=== PATIENT | male | born 1955 | race Caucasian/White ===

== ENCOUNTER 2019-12-27 19:47 | Inpatient (IN) | payer MEDICARE, OTHER ==
[~2019-12-27 19:47] MED LIST: Iopamidol-370 76% 500 ML 1 ML ONE
[2019-12-27] MEDS ORDERED: Adacel (T-DAP) 0.5 ML SYRINGE ONE ×2 (20:00→20:05)
[2019-12-27 20:14] LABS: #Basophils 0.1 thou/uL (0.0-0.2); #Eosinphils 0.1 thou/uL (0.0-0.7); #Lymphocytes 1.7 thou/uL (1.20-3.40); #Monocytes 0.8 thou/uL (0.11-0.59); #Neutrophils 11.9 thou/uL (1.40-6.50); %Basophils 0.5 % (0.0-1.0); %Eosinophils 0.4 % (0.0-10.0); %Lymphocytes 11.9 % (21.0-51.0); %Monocytes 5.5 % (0.0-10.0); %Neutrophils 81.6 % (42.0-75.0); Hemoglobin 16.5 g/dL (14.0-18.0); Mean Corpuscular HGB CONC 34.5 g/dL (32.0-36.0); Mean Corpuscular Hemoglobin 31.4 pg (27.0-31.0); Mean Platelet Volume 8.6 fL (7.4-10.4); Platelet Count 270 thou/uL (130-400); RBC Distribution Width 11.7 % (11.5-14.5); Red Blood Cell (RBC) Count 5.24 mill/uL (4.70-6.10); White Blood Cell (WBC) Count 14.6 thou/uL (4.8-10.8)
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
[2019-12-27 20:20] LABS: Prothrombin Time 13.5 sec (12.0-14.7)
[2019-12-27 20:21] LABS: PTT 21.3 sec (22.9-36.1)
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
[2019-12-27] MEDS ORDERED: Ondansetron PF 4 MG/2 ML Vial IVP PRN (21:09)
[2019-12-27] MEDS ORDERED: Dextrose 50% Abboject 50 ML SYRINGE SLOW IVP PRN (21:09)
[2019-12-27] MEDS ORDERED: Morphine 2 MG/ML SYRINGE SLOW IVP PRN (21:09)
[2019-12-27] MEDS ORDERED: Dextrose 5% in Water 1,000 ML IV PRN (21:09)
[2019-12-27 21:11] LABS: ALT (SGPT) 19 U/L (8-55); AST (SGOT) 25 U/L (5-34); Albumin 4.2 g/dL (3.4-4.8); Alkaline Phosphatase 59 U/L (40-110); Anion Gap 9 mmol/L (10-20); BUN (Urea Nitrogen) 20 mg/dL (8.4-25.7); Bilirubin, Total 0.6 mg/dL (0.2-1.2); Calc. Creatinine Clearance 0 mL/min (70-130); Calcium 9.2 mg/dL (7.8-10.44); Carbon Dioxide 29 mmol/L (23-31); Chloride 107 mmol/L (98-107); Estimated GFR-MDRD 68; Globulin 2.6 g/dL (2.4-3.5); Glucose 139 mg/dL (80-115); Potassium 4.4 mmol/L (3.5-5.1); Protein, Total 6.8 g/dL (5.8-8.1); Sodium 141 mmol/L (136-145)
[2019-12-27] MEDS ORDERED: traMADol HCl 50 MG TAB PO PRN ×2 (21:13)
[2019-12-27] MEDS ORDERED: Cyclobenzaprine 10 MG TAB PO PRN (21:13)
[2019-12-27] MEDS ORDERED: Sodium Chloride 0.9% 1,000 ML IV SCH (21:15)
[2019-12-27] MEDS ORDERED: Sodium Chloride 0.9% 10 ML ONE (21:50)
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
[2019-12-27] MEDS ORDERED: Fentanyl 100 MCG/2 ML VIAL ONE (22:09)
[2019-12-27] MEDS ORDERED: Dexamethasone 20 MG/5 ML VIAL ONE (22:39)
[2019-12-27] MEDS ORDERED: Ondansetron PF 4 MG/2 ML Vial ONE (22:39)
[2019-12-27] MEDS ORDERED: PROPOFOL 200 MG/20 ML VIAL ONE (22:39)
[2019-12-27] MEDS ORDERED: Rocuronium Bromide 10 MG/ML (10ML VIAL) ONE (22:39)
[2019-12-27] MEDS ORDERED: Succinylcholine Chloride 20 MG/ML 10 ml SYRINGE FS ONE (22:39)
[2019-12-27] MEDS ORDERED: Lidocaine 1% PF 5 ML VIAL ONE (22:39)
[2019-12-27 22:47] LABS: Bilirubin Negative (Negative); Blood, Urine Negative (Negative); Clarity Clear (Clear); Glucose, Urine (Dipstick) Normal (Negative); Leukocyte Negative Leu/uL (Negative); Nitrite Negative (Negative); Protein, Urine (Dipstick) 10 mg/dL (Neg-Trace); Urobilinogen Normal mg/dL (Less than 2)
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
[2019-12-27] MEDS ORDERED: Ondansetron HCl/PF 4 MG/2 ML Vial IVP PRN ×2 (22:51→23:53)
[2019-12-27] MEDS ORDERED: Promethazine HCl 25 MG/ML VIAL SLOW IVP PRN ×2 (22:51→23:53)
[2019-12-27] MEDS ORDERED: Promethazine HCl 25 MG/ML VIAL IM PRN ×2 (22:51→23:53)
[2019-12-27] MEDS ORDERED: Meperidine HCl/PF 25 MG/ML VIAL ONE (23:52)
[2019-12-27] MEDS ORDERED: HYDROmorphone 2 MG/ML VIAL SLOW IVP PRN (23:53)
[2019-12-27] MEDS ORDERED: Morphine Sulfate 2 MG/ML SYRINGE SLOW IVP PRN (23:53)
[2019-12-27] MEDS ORDERED: Meperidine HCl/PF 25 MG/ML VIAL SLOW IVP PRN (23:53)
[2019-12-27] MEDS ORDERED: PACU-Morphine 4MG/ML VIAL SLOW IVP PRN (23:53)
[2019-12-28] MEDS ORDERED: Fentanyl 100 MCG/2 ML VIAL ONE ×2 (00:02→00:20)
[2019-12-28] MEDS: Ibuprofen 200 MG TAB PO SCH ×4 (01:20→22:58)
[2019-12-28] MEDS: Acetaminophen 500 MG TAB PO SCH ×5 (01:46→22:58)
[2019-12-28 01:52] VITALS: BMI 26.8
[2019-12-28 05:13] LABS: #Lymphocytes 0.7 thou/uL (1.20-3.40); #Monocytes 0.1 thou/uL (0.11-0.59); #Neutrophils 7.5 thou/uL (1.40-6.50); %Eosinophils 0.1 % (0.0-10.0); %Lymphocytes 8.2 % (21.0-51.0); %Monocytes 1.5 % (0.0-10.0); %Neutrophils 90.2 % (42.0-75.0); Hemoglobin 13.9 g/dL (14.0-18.0); Mean Corpuscular HGB CONC 33.4 g/dL (32.0-36.0); Mean Corpuscular Hemoglobin 30.6 pg (27.0-31.0); Mean Corpuscular Volume 91.4 fL (78.0-98.0); Mean Platelet Volume 8.4 fL (7.4-10.4); Platelet Count 224 thou/uL (130-400); RBC Distribution Width 11.8 % (11.5-14.5); Red Blood Cell (RBC) Count 4.55 mill/uL (4.70-6.10); White Blood Cell (WBC) Count 8.4 thou/uL (4.8-10.8)
[2019-12-28 05:32] LABS: Anion Gap 12 mmol/L (10-20); BUN (Urea Nitrogen) 17 mg/dL (8.4-25.7); Calc. Creatinine Clearance 90 mL/min (70-130); Calcium 8.4 mg/dL (7.8-10.44); Carbon Dioxide 23 mmol/L (23-31); Chloride 108 mmol/L (98-107); Estimated GFR-MDRD 77; Glucose 180 mg/dL (80-115); Magnesium 2.2 mg/dL (1.6-2.6); Phosphorus 2.7 mg/dL (2.3-4.7); Potassium 4.3 mmol/L (3.5-5.1); Sodium 139 mmol/L (136-145)
[2019-12-28] MEDS: CEFAZOLIN 2 GM in Premix Bag 1 BAG IVPB SCH ×3 (05:35→22:58)
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
[2019-12-28] MEDS: Gabapentin 100 MG CAP PO SCH ×3 (10:03→20:00)
[2019-12-28] MEDS: Famotidine/PF 20 mg/2ml Vial SLOW IVP SCH ×2 (10:03→20:01)
[2019-12-28] MEDS: Senokot S 8.6-50 MG TAB PO SCH ×2 (10:04→20:01)
[2019-12-28] MEDS: Polyethylene Glycol 3350 17 GM Packet PO SCH (10:04)
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
[2019-12-28] MEDS: Enoxaparin Sodium 40 MG/0.4 ML SYRINGE SC SCH (20:01)
[2019-12-28] MEDS ORDERED: Prevnar 13-Val Conj/PF 0.5 ML SYRINGE IM ONE (21:00)
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
[2019-12-29 04:55] LABS: Band 2 % (5-11); Hemoglobin 12.2 g/dL (14.0-18.0); Lymphocytes 21 % (21-51); MDiff Complete? YES; Mean Corpuscular HGB CONC 34.4 g/dL (32.0-36.0); Mean Corpuscular Hemoglobin 31.5 pg (27.0-31.0); Mean Corpuscular Volume 91.6 fL (78.0-98.0); Mean Platelet Volume 8.6 fL (7.4-10.4); Monocytes 7 % (0-10); Neutrophil 70 % (42-75); Platelet Count 188 thou/uL (130-400); Platelet Morphology Comment Appears Adequate; RBC Distribution Width 11.6 % (11.5-14.5); Red Blood Cell (RBC) Count 3.89 mill/uL (4.70-6.10); White Blood Cell (WBC) Count 9.6 thou/uL (4.8-10.8)
[2019-12-29 05:06] LABS: Anion Gap 9 mmol/L (10-20); BUN (Urea Nitrogen) 20 mg/dL (8.4-25.7); Calc. Creatinine Clearance 99 mL/min (70-130); Calcium 7.8 mg/dL (7.8-10.44); Carbon Dioxide 25 mmol/L (23-31); Chloride 105 mmol/L (98-107); Estimated GFR-MDRD 86; Glucose 109 mg/dL (80-115); Magnesium 2.2 mg/dL (1.6-2.6); Phosphorus 3.2 mg/dL (2.3-4.7); Sodium 135 mmol/L (136-145)
[2019-12-29] MEDS: Ibuprofen 200 MG TAB PO SCH ×3 (05:22→21:04)
[2019-12-29] MEDS: Acetaminophen 500 MG TAB PO SCH ×3 (05:22→18:46)
[2019-12-29] MEDS: CEFAZOLIN 2 GM in Premix Bag 1 BAG IVPB SCH ×3 (05:22→21:04)
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
[2019-12-29] MEDS: Senokot S 8.6-50 MG TAB PO SCH ×2 (09:35→21:05)
[2019-12-29] MEDS: Polyethylene Glycol 3350 17 GM Packet PO SCH (09:35)
[2019-12-29] MEDS: Gabapentin 100 MG CAP PO SCH ×3 (09:35→21:05)
[2019-12-29] MEDS: Enoxaparin Sodium 40 MG/0.4 ML SYRINGE SC SCH (21:04)
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
[2019-12-30] MEDS: Acetaminophen 500 MG TAB PO SCH ×3 (02:01→11:31)
[2019-12-30] MEDS: Ibuprofen 200 MG TAB PO SCH ×2 (07:07→14:25)
[2019-12-30] MEDS: Polyethylene Glycol 3350 17 GM Packet PO SCH (08:42)
[2019-12-30] MEDS: Gabapentin 100 MG CAP PO SCH ×2 (08:43→14:25)
[2019-12-30] MEDS: Senokot S 8.6-50 MG TAB PO SCH (08:43)
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
[2019-12-30 15:47] VITALS: BP 154/90; TEMP 98.1
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
[2019-12-31 16:50] LABS: SARS-CoV-2 MS2 Positive; SARS-CoV-2 N Gene Negative; SARS-CoV-2 S Gene Negative; SARS-CoV-2 orf1ab Negative
== END 2019-12-30 16:50 | disposition home or self-care (01) | DRG 492 ==
LOC: ERS 19:47 → SDC/OP 23:40 → SURG B 12-28 01:05
PROVIDERS: ADMIT Surgery; ATTEND Surgery
PROC: 0QHH35Z Insertion of External Fixation Device into Left Tibia, Percutaneous Approach (ICD-10-PCS; principal; 2019-12-27)
PROC: 0QHK35Z Insertion of External Fixation Device into Left Fibula, Percutaneous Approach (ICD-10-PCS; 2019-12-27)
PROC: 8E0YXBZ Computer Assisted Procedure of Lower Extremity (ICD-10-PCS; 2019-12-27)
PROC: 3E0234Z Introduction of Serum, Toxoid and Vaccine into Muscle, Percutaneous Approach (ICD-10-PCS; 2019-12-27)
PROC: 3E02340 Introduction of Influenza Vaccine into Muscle, Percutaneous Approach (ICD-10-PCS; 2019-12-28)
DX: S82.302B Unspecified fracture of lower end of left tibia, initial encounter for open fracture type I or II (principal); Z11.59 Encounter for screening for other viral diseases; Z23 Encounter for immunization; S82.832B Other fracture of upper and lower end of left fibula, initial encounter for open fracture type I or II; S22.42XA Multiple fractures of ribs, left side, initial encounter for closed fracture; S06.0X0A Concussion without loss of consciousness, initial encounter; V89.2XXA Person injured in unspecified motor-vehicle accident, traffic, initial encounter; Z87.891 Personal history of nicotine dependence
CPT/HCPCS: 27840; 36415; 36416; 70450; 71045; 71260; 72125; 72170; 74177; 76000; 80048; 80053; 81003; 83735; 84100; 85007; 85025; 85027; 85610; 85730; 86850; 86900; 86901; 87635; 90471; 90715; 94760; 96365; C1713; G0390; J0690; J1100; J1650; J2001; J2175; J2270; J2405; J2704; J3010; J3370; Q9967; S0028; U0003

== ENCOUNTER 2020-01-04 11:21 | Day surgery (SDC) | payer SELFPAY ==
[2020-01-03 11:49] VITALS: BMI 26.4
[~2020-01-04 11:21] MED LIST changes: +Bupivacaine HCl 0.5%/Epinephrine 1:200,000/PF 30 ml Vial ONE; +Dexamethasone 20 MG/5 ML VIAL ONE; -Iopamidol-370 76% 500 ML 1 ML ONE; +Ketorolac Tromethamine 30 MG/ML VIAL ONE; +Lidocaine 1% PF 5 ML VIAL ONE; +Ondansetron PF 4 MG/2 ML Vial ONE; +PROPOFOL 200 MG/20 ML VIAL ONE
[2020-01-04] MEDS ORDERED: Fentanyl 100 MCG/2 ML VIAL ONE ×2 (12:36→13:13)
[2020-01-04] MEDS ORDERED: Midazolam HCl 2 mg/2 ml Vial ONE (12:36)
[2020-01-04] MEDS ORDERED: Promethazine HCl 25 MG/ML VIAL IM PRN ×2 (16:10→16:40)
[2020-01-04] MEDS ORDERED: Ondansetron HCl/PF 4 MG/2 ML Vial IVP PRN (16:10)
[2020-01-04] MEDS ORDERED: HYDROmorphone 2 MG/ML VIAL SLOW IVP PRN (16:10)
[2020-01-04] MEDS ORDERED: Promethazine HCl 25 MG/ML VIAL SLOW IVP PRN (16:10)
[2020-01-04] MEDS ORDERED: Ondansetron PF 4 MG/2 ML Vial IVP PRN (16:40)
[2020-01-04] MEDS ORDERED: Ropivacaine 0.2% 550 ML 550 ML NERVE BLCK SCH (16:40)
[2020-01-04] MEDS ORDERED: HYDROcodone/Acetaminophen 5/325 mg Tablet PO PRN ×2 (16:40)
[2020-01-04] MEDS ORDERED: Zolpidem Tartrate 5 MG TAB PO PRN (16:40)
[2020-01-04] MEDS ORDERED: traMADol HCl 50 MG TAB PO PRN ×2 (16:40)
--- NOTE | 2020-01-04 17:17 | RAD ---
LEFT ANKLE: 01/04/20 Two fluoroscopic views from OR presented. INDICATIONS: Open reduction internal fixation. Hardware removal. IMPRESSION: These films demonstrate plate and screws transfixing the distal tibia and fibula. POS: AH
--- NOTE | 2020-01-05 09:01 | OP ---
DATE OF PROCEDURE: 01/04/2020 OPERATIONS PERFORMED: 1. Open reduction and internal fixation of left distal tibial plafond fracture and distal fibular fracture. 2. External fixation removal. PREOPERATIVE DIAGNOSIS: Intra-articular displaced left distal tibia and fibular fracture. POSTOPERATIVE DIAGNOSIS: Intra-articular displaced left distal tibia and fibular fracture. COMPLICATIONS: None. ESTIMATED BLOOD LOSS: 100 mL. ANESTHESIA: General plus regional. IMPLANTS: Synthes 10-hole anterior lateral tibial plate with a 6-hole 1/3 tubular fibular plate with multiple locking and nonlocking screws. INDICATIONS: Mr. Heath is a 65-year-old male who has a fracture of the left distal tibia and fibula. He had a highly comminuted and displaced fracture, which was open. He was placed in an external fixator last week. He has been indicated now for ORIF to restore anatomic alignment and promote healing and allow removal of external fixator. He is at risk for posttraumatic arthritis, nonunion, malunion, infection, hardware failure, and other complications. DESCRIPTION OF PROCEDURE: Mr. Heath was identified in the preoperative holding area. His correct extremity was marked. He was carried to the operating room. He was positioned supine. General anesthesia was induced. A multidisciplinary time-out was performed. The left lower extremity was prepped and draped in sterile fashion. We began the procedure with external fixator removal. The pins were removed with appropriate T-handle. We cleaned the pin sites and irrigated these. Next, again we prepped the leg. We then proceeded with an anterior lateral approach to the distal tibia and fibula. We dissected down through the subcutaneous tissues to the fibula. We exposed the underlying fibular fracture, which was transverse. We reduced this fracture. We then applied a 6-hole 1/3 tubular plate. Multiple screws were placed proximally and distal to the fibular fracture. We took x-ray images, confirming the alignment was appropriate and all hardware was appropriate. We then moved more medially across the interosseous membrane to the tibia. We exposed the highly comminuted and displaced distal tibial fracture. We pulled length on the ankle and restored the appropriate length. We then were able to reduce the articular fragments back to their anatomic position. There was a large anterior fragment, which we used K-wires to hold to the posterior fragments. We then reduced the shaft fragments as well, holding the reduction with clamps and K-wires. Next, we placed a 10-hole anterior lateral plate. Multiple locking screws were placed distally. We then placed multiple nonlocking screws proximally. This held our reduction well. We took x-ray images in orthogonal planes. There were no complications. We thoroughly irrigated with copious lavage after all screws were placed. At this point, we packed some cancellous bone chips in the metaphysis of the bone as we did have a large defect. Finally, we closed appropriately in layers. We placed a well-padded splint. The patient was taken to the recovery room in good condition. Job ID: [id number]
== END 2020-01-04 18:28 | disposition home or self-care (01) ==
LOC: SDC 11:21
PROVIDERS: ATTEND Orthopaedic Surgery
PROC: 0QSK04Z Reposition Left Fibula with Internal Fixation Device, Open Approach (ICD-10-PCS; principal; 2020-01-04)
DX: S82.302A Unspecified fracture of lower end of left tibia, initial encounter for closed fracture (principal); S82.492A Other fracture of shaft of left fibula, initial encounter for closed fracture
CPT/HCPCS: 76000; C1713; J0670; J0690; J1100; J1885; J2001; J2250; J2405; J2704; J3010

== ENCOUNTER 2020-01-18 12:27 | Observation (INO) | payer MEDICARE ==
[2020-01-18] MEDS ORDERED: Cyclobenzaprine 10 MG TAB PO PRN (14:08)
[2020-01-18] MEDS ORDERED: Acetaminophen 500 MG TAB PO PRN (14:08)
[2020-01-18] MEDS ORDERED: Gabapentin 100 MG CAP PO PRN (14:08)
[2020-01-18] MEDS ORDERED: Polyethylene Glycol 3350 17 GM Packet PO PRN (14:08)
[2020-01-18] MEDS ORDERED: Senokot S 8.6-50 MG TAB PO PRN (14:08)
[2020-01-18 14:27] VITALS: BMI 24.7
[2020-01-18 15:08] LABS: #Basophils 0.1 thou/uL (0.0-0.2); #Eosinphils 0.1 thou/uL (0.0-0.7); #Lymphocytes 2.1 thou/uL (1.20-3.40); #Monocytes 0.7 thou/uL (0.11-0.59); #Neutrophils 6.1 thou/uL (1.40-6.50); %Eosinophils 1.6 % (0.0-10.0); %Lymphocytes 23.2 % (21.0-51.0); %Monocytes 7.2 % (0.0-10.0); %Neutrophils 67.1 % (42.0-75.0); Hemoglobin 12.9 g/dL (14.0-18.0); Mean Corpuscular HGB CONC 34.1 g/dL (32.0-36.0); Mean Corpuscular Hemoglobin 30.7 pg (27.0-31.0); Platelet Count 529 thou/uL (130-400); RBC Distribution Width 11.2 % (11.5-14.5); Red Blood Cell (RBC) Count 4.22 mill/uL (4.70-6.10); White Blood Cell (WBC) Count 9.1 thou/uL (4.8-10.8)
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
[2020-01-18 15:30] LABS: Anion Gap 14 mmol/L (10-20); BUN (Urea Nitrogen) 22 mg/dL (8.4-25.7); Calc. Creatinine Clearance 91 mL/min (70-130); Calcium 9.1 mg/dL (7.8-10.44); Carbon Dioxide 28 mmol/L (23-31); Chloride 101 mmol/L (98-107); Estimated GFR-MDRD 83; Glucose 130 mg/dL (80-115); Magnesium 2.2 mg/dL (1.6-2.6); Phosphorus 4.6 mg/dL (2.3-4.7); Potassium 4.1 mmol/L (3.5-5.1); Sodium 139 mmol/L (136-145)
[2020-01-18] MEDS: Vancomycin 1 GM in Premix Bag 1 BAG IVPB SCH (15:45)
[2020-01-18] MEDS: Sodium Chloride 0.9% 1,000 ML IV SCH (15:46)
[2020-01-18] MEDS ORDERED: Ibuprofen 200 MG TAB PO PRN (16:03)
[2020-01-18] MEDS: Piperacillin/Tazobactam 3.375 GM in Sodium Chloride 0.9% 100 ML IVPB SCH (18:09)
[2020-01-18] MEDS: Acetaminophen 500 MG TAB PO SCH (18:09)
[2020-01-18 19:20] LABS: Bilirubin Negative (Negative); Blood, Urine Negative (Negative); Clarity Clear (Clear); Glucose, Urine (Dipstick) Normal (Negative); Leukocyte Negative Leu/uL (Negative); Nitrite Negative (Negative); Protein, Urine (Dipstick) Negative (Neg-Trace); Urobilinogen Normal mg/dL (Less than 2)
[2020-01-18] MEDS ORDERED: Enoxaparin Sodium 40 MG/0.4 ML SYRINGE SC SCH (21:00)
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
[2020-01-18] MEDS: HYDROcodone/Acetaminophen 10/325 mg Tablet PO PRN (21:16)
[2020-01-18] MEDS: Senokot S 8.6-50 MG TAB PO SCH (21:19)
[2020-01-19] MEDS: Sodium Chloride 0.9% 1,000 ML IV SCH (00:25)
[2020-01-19] MEDS: Acetaminophen 500 MG TAB PO SCH ×3 (00:25→11:41)
[2020-01-19] MEDS: Piperacillin/Tazobactam 3.375 GM in Sodium Chloride 0.9% 100 ML IVPB SCH ×3 (00:25→11:43)
--- NOTE | 2020-01-19 02:13 | PRG ---
DATE OF SERVICE: 01/19/2020 SUBJECTIVE: The patient is currently on the surgical floor. He has been admitted today, status post open reduction and internal fixation on January 03, for an ankle fracture that was seen in clinic today and felt that he had a surgical site infection. At which time, we have admitted in the hospital and began IV antibiotics. The patient was evaluated early this evening by Dr. Broderick, who felt that the patient would not require irrigation and debridement in the operating room, but we would do IV antibiotics for at least 24 hours. At the time of my visit, the patient reports pain control. He was tolerating his diet. OBJECTIVE: VITAL SIGNS: Stable. The patient is afebrile. GENERAL: The patient is resting comfortably in bed. He is awake, alert, conversant, appropriate. His respirations are nonlabored. ABDOMEN: Nondistended. EXTREMITIES: Neurovascularly intact x4. His left lower extremity has a clean, dry, intact dressing on it. ASSESSMENT: Status post open reduction and internal fixation of left ankle fracture with suspected postop wound infection. PLAN: To continue IV antibiotics. Begin physical and occupational therapy and discuss placement. Job ID: [id number]
[2020-01-19] MEDS: Vancomycin 1 GM in Premix Bag 1 BAG IVPB SCH ×2 (02:51→13:58)
[2020-01-19] MEDS: Senokot S 8.6-50 MG TAB PO SCH ×2 (02:55→09:07)
[2020-01-19] MEDS: HYDROcodone/Acetaminophen 10/325 mg Tablet PO PRN ×2 (05:52→11:42)
[2020-01-19] MEDS ORDERED: Polyethylene Glycol 3350 17 GM Packet PO SCH (09:00)
[2020-01-19 15:21] VITALS: BP 122/79; TEMP 98.2
--- NOTE | 2020-01-20 11:28 | DIS ---
DATE OF ADMISSION: 01/18/2020 DATE OF DISCHARGE: 01/19/2020 PREOPERATIVE DIAGNOSIS: Postoperative wound infection, left ankle. POSTOPERATIVE DIAGNOSIS: Postoperative wound infection, left ankle. PROCEDURES: None. HOSPITAL COURSE: The patient was in the clinic on the . He was seen by Beth Saeed. His wounds looked fairly awful, but he had been in a splint for a while. He was brought over to the hospital. We evaluated the wounds, kind of cleaned up and actually looked quite well. New dressing was placed. The patient was discharged the next day. The patient had no hospital complications for the one day. He would follow up in the clinic in 7 to 10 days for followup. If there was any dressing saturation, he would follow up sooner. The patient understands the plan. He was initially admitted for this discharge from the Trauma Service, discharged by myself. DISCHARGE CONDITION: Good/stable. DISPOSITION: Home. FOLLOWUP: Followup would be in 7 to 10 days. DISCHARGE MEDICATIONS: Given with usage instructions. Job ID: [id number]
== END 2020-01-19 17:20 | disposition home or self-care (01) ==
LOC: SURG A 12:27 → INTOOBSV 12:27
PROVIDERS: ADMIT Surgery; ATTEND Surgery
DX: T81.49XA Infection following a procedure, other surgical site, initial encounter (principal); Z87.891 Personal history of nicotine dependence; Z98.890 Other specified postprocedural states
CPT/HCPCS: 71045; 80048; 81003; 83735; 84100; 85025; 87040; 96361; 96365; 96366; 96372; 96376; 97116; 97139 ×3; 97535; 97760; G0378; 36415; J1650; J2543; J3370; J3490

== ENCOUNTER 2020-04-05 07:17 | Outpatient (CLI) | payer MEDICARE, OTHER ==
[2020-04-06 12:34] LABS: SARS-CoV-2 MS2 Positive; SARS-CoV-2 N Gene Negative; SARS-CoV-2 S Gene Negative; SARS-CoV-2 by NAA Not Detected (NotDetected); SARS-CoV-2 orf1ab Negative
== END 2020-04-05 07:18 | disposition home or self-care (01) ==
LOC: LABBT 07:17
PROVIDERS: ATTEND Orthopaedic Surgery
DX: S82.872A Displaced pilon fracture of left tibia, initial encounter for closed fracture (principal); Z20.828 Contact with and (suspected) exposure to other viral communicable diseases
CPT/HCPCS: 87635; U0003

== ENCOUNTER 2020-04-09 10:38 | Day surgery (SDC) | payer MEDICARE ==
[2020-04-05 10:46] VITALS: BMI 25.8
[~2020-04-09 10:38] MED LIST changes: -Bupivacaine HCl 0.5%/Epinephrine 1:200,000/PF 30 ml Vial ONE; -Dexamethasone 20 MG/5 ML VIAL ONE; -Ketorolac Tromethamine 30 MG/ML VIAL ONE; -Ondansetron PF 4 MG/2 ML Vial ONE
[2020-04-09] MEDS ORDERED: Fentanyl 100 MCG/2 ML VIAL ONE (12:48)
[2020-04-09] MEDS ORDERED: Bupivacaine HCl 0.5%/Epinephrine 1:200,000/PF 30 ml Vial ONE (12:49)
--- NOTE | 2020-04-09 13:26 | RAD ---
Exam:Exam: Intraoperative fluoroscopy HISTORY: Left ankle fracture with internal fixation COMPARISON: 04/04/2020 FINDINGS: 1 intraprocedural fluoroscopic view demonstrate nonunion of a distal fibula and tibia fract ure. Exposure 4.6 seconds. 0.09 emma rowland IMPRESSION: Fluoroscopy as above
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
== END 2020-04-09 15:26 | disposition home or self-care (01) ==
LOC: SDC 10:38
PROVIDERS: ATTEND Orthopaedic Surgery
PROC: 0JQR0ZZ Repair Left Foot Subcutaneous Tissue and Fascia, Open Approach (ICD-10-PCS; principal; 2020-04-09)
PROC: 0QPK04Z Removal of Internal Fixation Device from Left Fibula, Open Approach (ICD-10-PCS; 2020-04-09)
DX: T81.30XA Disruption of wound, unspecified, initial encounter (principal); T84.89XA Other specified complication of internal orthopedic prosthetic devices, implants and grafts, initial encounter; S82.872E Displaced pilon fracture of left tibia, subsequent encounter for open fracture type I or II with routine healing; V89.2XXD Person injured in unspecified motor-vehicle accident, traffic, subsequent encounter
CPT/HCPCS: 76000; J0670; J0690; J2704; J3010

== ENCOUNTER 2020-06-20 06:40 | Outpatient (CLI) | payer MEDICARE ==
[2020-06-21 03:41] LABS: SARS-CoV-2 MS2 Positive; SARS-CoV-2 N Gene Negative; SARS-CoV-2 S Gene Negative; SARS-CoV-2 by NAA Not Detected (NotDetected); SARS-CoV-2 orf1ab Negative
== END 2020-06-20 06:41 | disposition home or self-care (01) ==
LOC: LABBT 06:40
PROVIDERS: ATTEND Orthopaedic Surgery
DX: Z01.812 Encounter for preprocedural laboratory examination (principal); Z20.828 Contact with and (suspected) exposure to other viral communicable diseases; T85.848D Pain due to other internal prosthetic devices, implants and grafts, subsequent encounter
CPT/HCPCS: 87635; U0003

== ENCOUNTER 2020-06-25 10:19 | Inpatient (IN) | payer MEDICARE ==
[2020-06-25] MEDS ORDERED: Fentanyl 100 MCG/2 ML VIAL ONE ×4 (11:20→16:27)
[2020-06-25] MEDS ORDERED: Neomycin-Polymyxin 1 ML AMP ONE (13:31)
[2020-06-25] MEDS ORDERED: Ondansetron PF 4 MG/2 ML Vial ONE (13:36)
[2020-06-25] MEDS ORDERED: Lidocaine 1% PF 5 ML VIAL ONE (13:36)
[2020-06-25] MEDS ORDERED: Dexamethasone 20 MG/5 ML VIAL ONE (13:36)
[2020-06-25] MEDS ORDERED: PROPOFOL 200 MG/20 ML VIAL ONE (13:36)
[2020-06-25] MEDS ORDERED: Milk Of Magnesia 30 ML UDCUP PO PRN (14:41)
[2020-06-25] MEDS ORDERED: Morphine 2 MG/ML VIAL SLOW IVP PRN (14:41)
[2020-06-25] MEDS ORDERED: Bisacodyl 10 MG SUPP PR PRN (14:41)
[2020-06-25] MEDS ORDERED: Acetaminophen/Codeine 30-300mg Tablet PO PRN ×2 (14:41)
[2020-06-25] MEDS ORDERED: Fentanyl 100 MCG/2 ML VIAL SLOW IVP PRN (14:41)
[2020-06-25] MEDS ORDERED: Ondansetron PF 4 MG/2 ML Vial SLOW IVP PRN (14:41)
[2020-06-25] MEDS ORDERED: Morphine 4 MG/ML VIAL SLOW IVP PRN (14:41)
[2020-06-25] MEDS ORDERED: Acetaminophen 325 MG TAB PO PRN (14:41)
[2020-06-25] MEDS ORDERED: Promethazine HCl 25 MG/ML VIAL IM PRN (14:41)
[2020-06-25] MEDS ORDERED: Communication Order-Pharmacy FS SCH (14:45)
[2020-06-25] MEDS ORDERED: Heparin 1,000 UNITS/ML VIAL ONE (16:05)
[2020-06-25] MEDS ORDERED: HYDROcodone/Acetaminophen 10/325 mg Tablet ONE (16:38)
[2020-06-25] MEDS: HYDROcodone/Acetaminophen 10/325 mg Tablet PO PRN (16:50)
--- NOTE | 2020-06-25 19:03 | RAD ---
EXAM: 1 single submitted intraoperative fluoroscopic image of the left ankle. DATE: 06/25/2020 12:20 PM INDICATION: Removal of hardware COMPARISON: Prior left ankle radiograph dated May 21, 2020 FINDING: There is been interval removal of the hardware involving the distal tibia and fibula. The i ncompletely healed distal tibia and fibula fracture appears similar. Chronic periostitis involving the distal tibia is similar. Total fluoroscopic time was 7.8 seconds. IMPRESSION:Interval removal of hardware from the distal left tibia and fibula.
[2020-06-25] MEDS ORDERED: Bromfenac Sodium [Prolensa] 3 ML Drops R EYE SCH (21:00)
[2020-06-25] MEDS: Ketorolac Tromethamine 30 MG/ML VIAL IVP SCH ×2 (21:32→22:58)
[2020-06-25] MEDS: Aspirin 81 mg Enteric Coated Tablet PO SCH (21:39)
[2020-06-25] MEDS: Piperacillin/Tazobactam 3.375 GM in Sodium Chloride 0.9% 100 ML IVPB SCH (21:40)
[2020-06-25] MEDS: Moxifloxacin 0.5% Opth Drop 3 ML BOT R EYE SCH (21:41)
[2020-06-25] MEDS ORDERED: Vancomycin HCl 1.25 GM in Sodium Chloride 0.9% 250 ML 300 ML IVPB SCH (22:00)
[2020-06-25] MEDS: Vancomycin HCl 1.25 GM in Sodium Chloride 0.9% 250 ML 250 ML IVPB SCH (22:56)
[2020-06-26 01:01] VITALS: BMI 26.5
[2020-06-26] MEDS: Piperacillin/Tazobactam 3.375 GM in Sodium Chloride 0.9% 100 ML IVPB SCH ×4 (02:16→21:04)
[2020-06-26] MEDS: HYDROcodone/Acetaminophen 10/325 mg Tablet PO PRN (02:16)
[2020-06-26] MEDS: Ketorolac Tromethamine 30 MG/ML VIAL IVP SCH ×3 (05:20→17:42)
[2020-06-26 05:57] LABS: #Lymphocytes 1.3 thou/uL (1.20-3.40); #Monocytes 0.7 thou/uL (0.11-0.59); #Neutrophils 8.6 thou/uL (1.40-6.50); %Basophils 0.1 % (0.0-1.0); %Eosinophils 0.1 % (0.0-10.0); %Lymphocytes 12.1 % (21.0-51.0); %Monocytes 6.8 % (0.0-10.0); %Neutrophils 80.9 % (42.0-75.0); Hemoglobin 12.7 g/dL (14.0-18.0); Mean Corpuscular HGB CONC 33.3 g/dL (32.0-36.0); Mean Corpuscular Hemoglobin 28.8 pg (27.0-31.0); Mean Corpuscular Volume 86.6 fL (78.0-98.0); Mean Platelet Volume 8.3 fL (7.4-10.4); Platelet Count 256 thou/uL (130-400); RBC Distribution Width 12.2 % (11.5-14.5); White Blood Cell (WBC) Count 10.6 thou/uL (4.8-10.8)
[2020-06-26 06:18] LABS: ALT (SGPT) 11 U/L (8-55); AST (SGOT) 14 U/L (5-34); Albumin 3.4 g/dL (3.4-4.8); Alkaline Phosphatase 95 U/L (40-110); Anion Gap 13 mmol/L (10-20); BUN (Urea Nitrogen) 17 mg/dL (8.4-25.7); Bilirubin, Total 0.5 mg/dL (0.2-1.2); Calc. Creatinine Clearance 91 mL/min (70-130); Calcium 8.2 mg/dL (7.8-10.44); Carbon Dioxide 24 mmol/L (23-31); Chloride 101 mmol/L (98-107); Globulin 3.1 g/dL (2.4-3.5); Glucose 150 mg/dL (80-115); Potassium 4.5 mmol/L (3.5-5.1); Protein, Total 6.5 g/dL (5.8-8.1); Sodium 133 mmol/L (136-145)
[2020-06-26] MEDS ORDERED: FLU VACC QS2020-21(65YR UP)/PF 240 MCG/0.7 ML SYRINGE IM ONE (09:00)
[2020-06-26] MEDS ORDERED: Difluprednate [Durezol] 5 ML Drops R EYE SCH (09:00)
[2020-06-26] MEDS: Aspirin 81 mg Enteric Coated Tablet PO SCH ×2 (09:49→21:04)
[2020-06-26] MEDS: Moxifloxacin 0.5% Opth Drop 3 ML BOT R EYE SCH ×2 (09:50→21:04)
[2020-06-26] MEDS: Vancomycin HCl 1.25 GM in Sodium Chloride 0.9% 250 ML 250 ML IVPB SCH ×2 (11:08→22:09)
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
--- NOTE | 2020-06-26 22:30 | OP ---
DATE OF PROCEDURE: 06/25/2020 PREOPERATIVE DIAGNOSIS: Status post left pilon fracture, now with probable infected hardware. POSTOPERATIVE DIAGNOSES: 1. Nonunion, left distal tibia. 2. 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 PROCEDURES: 1. Removal of hardware, left distal tibia and fibula. 2. Irrigation and debridement of left distal tibia and fibula. ANESTHESIA: General. ENVIRONMENT COORDINATOR: Ismael. TOURNIQUET TIME: 96 minutes at 300 mmHg. COMPLICATIONS: None. IMPLANTS: None except for vancomycin 1 g powder to bone. DRAINS: None. SPECIMEN: Swab, soft tissue and bone sent for Gram stain, culture and sensitivity. OUTCOME: Satisfactory. INDICATIONS FOR PROCEDURE: The patient is a 65-year-old gentleman status post open left intra-articular distal tibia fracture and fibula fracture. This was treated with irrigation and debridement as well as open reduction and internal fixation. The patient has now had loosening of hardware with recurrent small pustules occurring at the anterior distal tibia. At this time, his inflammatory markers are elevated, but with a relatively normal white blood cell count. Given the radiographic findings as well as wound problems, we believe that he is having probably low-grade infection and as such, the patient now to undergo hardware removal to obtain deep specimens for Gram stain, culture and sensitivity as well as to remove the plates and screws to hopefully allow for better eradication of infection if proven present. Informed consent has been obtained. I believe, all questions answered. DESCRIPTION OF PROCEDURE: The patient was brought to the operating room and a time-out performed followed by induction of general anesthesia. Next, the patient was positioned supine on the OR table and a sterile prep and drape was performed of the left lower extremity. The limb was then elevated and then a tourniquet inflated to 300 mmHg at the thigh. Next, following the previous skin incision an anterior lateral incision was made after skin was sharply incised. Dissection was carried down bluntly to the underlying distal fibula. At this point, my help desk assistant provided retraction of soft tissue to allow for exposure of the distal fibular plate. It should be noted that all six screws within this plate were loose. The screws were removed and the plate easily removed. At this point, a swab of the tissue was sent to the lab for Gram stain, culture and sensitivity. No purulent material was encountered; however, the tissue directly around the plate was somewhat "soupy" and just not healthy-appearing tissue. This was removed using a combination of elevators and rongeurs as well as curettes for the drill holes within the fibula. Next, while my help desk assistant provided retraction, the skin flap was developed from lateral to medial following the anterior cortex of the distal tibia. This exposed the distal tibial plate. The locking screws were removed from the plate proximally and again each of the screws were found to be loose. Next, the locking screws at the articular surface were also removed and then the plate taken out. Again, similar findings were present with cavitary lesions around each of the screws with a soupy-appearing exudate present. This was also swabbed as well as a portion of the soft tissue sent as well as a small section of bone sent to the lab for Gram stain, culture and sensitivity. Again, screw holes were curetted out while my help desk assistant provided retraction of the soft tissue to be able to get a true debridement of this dysvascular and abnormal-appearing soft tissue. Next, a final small incision was made at the tip of the medial malleolus and a single malleolar screw was removed without difficulty. At this point, 5 L of normal saline with antibiotic irrigant was irrigated through the wound. The patient also had a small former external fixator pin site went from anterior to posterior at the distal tibia that was not normal in appearance. This was unroofed and this track was thoroughly curetted, although no purulent material was encountered. At the completion of the 5 L of irrigation, a gram of vancomycin was sprinkled along the tibia and the anterior interosseous membrane and then this wound was loosely reapproximated using Vicryl and nylon. Nylon was also used for the medial incision. At the completion of this, patient was found intraoperatively to have nonunion at the main fracture line. The fibrinous exudate was removed with a curette; however, given the lack of full bony stability at the completion of wound closure Xeroform gauze, Webril, and posterior fiberglass splint were applied to the ankle. The patient was then transferred to recovery room in stable condition. There were no complications. He tolerated the procedure well. Tourniquet was let down with total time of 96 minutes. Infectious disease consultation will be requested and patient will be started on antibiotics empirically with plans to tailor the antibiotics pending cultures. Job ID: [id number]
[2020-06-27] MEDS: Piperacillin/Tazobactam 3.375 GM in Sodium Chloride 0.9% 100 ML IVPB SCH ×4 (02:40→21:20)
[2020-06-27 06:20] LABS: #Basophils 0.1 thou/uL (0.0-0.2); #Eosinphils 0.1 thou/uL (0.0-0.7); #Lymphocytes 2.6 thou/uL (1.20-3.40); #Monocytes 0.5 thou/uL (0.11-0.59); #Neutrophils 3.4 thou/uL (1.40-6.50); %Basophils 1.1 % (0.0-1.0); %Eosinophils 1.7 % (0.0-10.0); %Monocytes 7.8 % (0.0-10.0); %Neutrophils 50.5 % (42.0-75.0); Hemoglobin 11.8 g/dL (14.0-18.0); Mean Corpuscular HGB CONC 32.9 g/dL (32.0-36.0); Mean Corpuscular Hemoglobin 28.9 pg (27.0-31.0); Mean Corpuscular Volume 87.9 fL (78.0-98.0); Mean Platelet Volume 8.2 fL (7.4-10.4); Platelet Count 219 thou/uL (130-400); RBC Distribution Width 12.4 % (11.5-14.5); Red Blood Cell (RBC) Count 4.09 mill/uL (4.70-6.10); White Blood Cell (WBC) Count 6.7 thou/uL (4.8-10.8)
[2020-06-27] MEDS: HYDROcodone/Acetaminophen 10/325 mg Tablet PO PRN ×2 (06:56→17:22)
[2020-06-27] MEDS: Aspirin 81 mg Enteric Coated Tablet PO SCH ×2 (09:15→21:21)
[2020-06-27] MEDS: Vancomycin HCl 1.25 GM in Sodium Chloride 0.9% 250 ML 250 ML IVPB SCH ×2 (09:18→21:20)
[2020-06-27] MEDS: Moxifloxacin 0.5% Opth Drop 3 ML BOT R EYE SCH (10:52)
--- NOTE | 2020-06-27 18:22 | PRG ---
DATE OF SERVICE: 06/27/2020 SUBJECTIVE: Feeling well. No respiratory symptoms or abdominal pain. Voiding without difficulty. No diarrhea. OBJECTIVE: VITAL SIGNS: T-max 98.6, heart rate 62, respiratory rate 16, saturations 97% on room air, blood pressure 130/80. GENERAL: Appears in no distress. Oriented. LUNGS: Clear. HEART: S1 and S2, regular rate. ABDOMEN: Soft. Not distended. : Voiding without any difficulty. EXTREMITIES: Left lower extremity with splint and dressing. Operative report reviewed. The procedure consisted of removal of hardware, left distal tibia and fibula, irrigation, debridement of left distal tibia and fibula. The findings included 6 loose screws within screws removed. The plate easily removed as well. Distal tibial plate was the next target. The locking screws were removed and found to be loose as well. Locking screws at the articular surface removed and plate taken out. Cavitary lesions around each of the screws with a soupy-appearance exudate present. Screw holes were curetted out. Debridement was carried out of the abnormal-appearing soft tissue. A single malleolar screw was removed without difficulty and then saline with antibiotic irrigant was irrigated through the wound. Small former external fixator pin site went through an anterior to posterior of the distal tibia, was not normal in appearance, this was unroofed, and the tract was curetted. So, nonunion of the main fracture line was found. Fibrinous exudate was removed with a curette, and a fiberglass splint was applied to the ankle. Cultured all the samples with Enterobacter cloacae except for 1 sample that had Staphylococcus aureus as well. The patient is currently on piperacillin and tazobactam and vancomycin which will be continued until susceptibilities of the Staphylococcus aureus are found. ASSESSMENT AND DISCUSSION: Tib-fib fracture close to the ankle with external fixation and internal fixation and now delayed infection with osteomyelitis. All the hardware with loose screws, everything was removed, even the one of the external fixators pin, tract was infected as well, and there was nonunion unfortunately of the tibia, so the patient will continue with Zosyn for now, and eventually, will be able to transition to oral quinolone plus an additional antimicrobial depending on the susceptibilities of the Staphylococcus aureus and will have to treat for a long period of time, probably more than 3 months. Job ID: [id number] [facility]
[2020-06-27] MEDS ORDERED: Moxifloxacin 0.5% Opth Drop 3 ML BOT R EYE SCH (21:00)
[2020-06-28] MEDS: Piperacillin/Tazobactam 3.375 GM in Sodium Chloride 0.9% 100 ML IVPB SCH ×4 (04:34→21:16)
[2020-06-28] MEDS: Aspirin 81 mg Enteric Coated Tablet PO SCH ×2 (08:59→21:15)
[2020-06-29] MEDS: Piperacillin/Tazobactam 3.375 GM in Sodium Chloride 0.9% 100 ML IVPB SCH ×4 (03:34→21:27)
[2020-06-29] MEDS: Aspirin 81 mg Enteric Coated Tablet PO SCH ×2 (08:29→21:28)
[2020-06-29] MEDS ORDERED: Vancomycin HCl 1.25 GM in Sodium Chloride 0.9% 250 ML 300 ML IVPB SCH (21:00)
[2020-06-29] MEDS ORDERED: Vancomycin HCl 1 GM in Sodium Chloride 0.9% 250 ML 250 ML IVPB SCH (21:00)
[2020-06-29] MEDS: Vancomycin HCl 1.25 GM in Sodium Chloride 0.9% 250 ML 300 ML IVPB SCH (21:28)
[2020-06-30] MEDS: Piperacillin/Tazobactam 3.375 GM in Sodium Chloride 0.9% 100 ML IVPB SCH ×4 (03:42→20:40)
--- NOTE | 2020-06-30 06:27 | PRG ---
DATE OF SERVICE: 06/29/2020 SUBJECTIVE: Mr. Heath is sitting up, eating dinner. Does not have any major complaints except for diarrhea, which started over the past 2 days. OBJECTIVE: VITAL SIGNS: Temperature max 98.1, blood pressure 140/80, heart rate 89, respiratory rate 18, and O2 saturation 98. GENERAL: Appears in no distress, oriented. LUNGS: Clear. HEART: S1, S2. Regular rate. ABDOMEN: Soft without tenderness. EXTREMITIES: Moves all extremities equally. LABORATORY DATA: White cell count 6.7, hemoglobin 11.8, platelets 219, creatinine 0.95. Microbiology, we now have MRSA identified in the hardware of 3 different samples. ASSESSMENT AND DISCUSSION: Tib-fib fracture close to the ankle with external fixation and internal fixation, delayed infection with osteomyelitis. Now, we have an MRSA in addition to the Enterobacter cloacae, so we will have to place a PICC line and treat him with IV vancomycin plus probably meropenem or ciprofloxacin plus vancomycin, which will probably be simpler. The MRSA is sensitive to Cipro, but he would need vancomycin, which is the standard of care for this sort of infection and the Cipro would treat the Enterobacter cloacae. The end date of therapy will be August 07 for the vancomycin component and then continue Cipro for another 3 months approximately. Job ID: [id number]
[2020-06-30] MEDS: Vancomycin HCl 1.25 GM in Sodium Chloride 0.9% 250 ML 300 ML IVPB SCH ×2 (08:38→21:47)
[2020-06-30] MEDS: Aspirin 81 mg Enteric Coated Tablet PO SCH ×2 (08:38→20:41)
--- NOTE | 2020-06-30 13:10 | SPC ---
PROCEDURE: Peripheral insertion central catheter. INDICATION: IV antibiotic treatment. FINDINGS: A single lumen 5 [place] PICC line was placed in the left upper extremity via the left basilic vein. The tip is positioned in the SVC/right atrium. PROCEDURE NOTE: Left upper extremity was prepped and draped in a sterile manner. Left upper extremity venogram was p erformed by injecting iodinated contrast into an already existing peripheral IV. Left basilic vein o [id number] and was chosen for puncture. Local anesthesia was administered with Lidocaine. This vein was punctured under fluoroscopic guidance with micropuncture technique. A wire was introduced into t his vein under fluoroscopy. The was wire was positioned in the SVC and the catheter length was measu red and cut. Sheath was placed over the wire. The catheter was then advanced over the wire. The pe elaway sheath was removed. The wire was removed. The catheter was secured and flushed. No problems or complications. POS: [facility]
[2020-06-30] MEDS ORDERED: Iopamidol 300 61% 50 ML VIAL FS ONE (14:38)
[2020-07-01] MEDS: Piperacillin/Tazobactam 3.375 GM in Sodium Chloride 0.9% 100 ML IVPB SCH ×4 (03:54→20:30)
[2020-07-01] MEDS: Aspirin 81 mg Enteric Coated Tablet PO SCH ×2 (09:46→20:31)
[2020-07-01] MEDS: Vancomycin HCl 1.25 GM in Sodium Chloride 0.9% 250 ML 300 ML IVPB SCH (09:47)
[2020-07-01 09:56] LABS: Vancomycin, Trough 13.6 ug/mL
[2020-07-01] MEDS: Vancomycin 1.5 GRAM/300 ML BAG 1.5 GM in Premix Bag 1 BAG IVPB SCH (21:52)
[2020-07-02] MEDS: Piperacillin/Tazobactam 3.375 GM in Sodium Chloride 0.9% 100 ML IVPB SCH ×4 (03:26→20:04)
[2020-07-02] MEDS: Aspirin 81 mg Enteric Coated Tablet PO SCH ×2 (08:18→20:04)
[2020-07-02] MEDS: Vancomycin 1.5 GRAM/300 ML BAG 1.5 GM in Premix Bag 1 BAG IVPB SCH ×2 (08:19→21:56)
[2020-07-03] MEDS: Piperacillin/Tazobactam 3.375 GM in Sodium Chloride 0.9% 100 ML IVPB SCH ×3 (02:03→15:13)
[2020-07-03 08:28] VITALS: TEMP 98.1
[2020-07-03] MEDS: Aspirin 81 mg Enteric Coated Tablet PO SCH (09:51)
[2020-07-03 10:11] LABS: Vancomycin, Trough 16.8 ug/mL
[2020-07-03] MEDS: Vancomycin 1.5 GRAM/300 ML BAG 1.5 GM in Premix Bag 1 BAG IVPB SCH (12:36)
[2020-07-03 16:26] VITALS: BP 137/76
== END 2020-07-03 20:03 | disposition home or self-care (01) | DRG 908 ==
LOC: SDC 10:19 → SURG B 14:49
PROVIDERS: ADMIT Orthopaedic Surgery; ATTEND Orthopaedic Surgery
PROC: 0QPH04Z Removal of Internal Fixation Device from Left Tibia, Open Approach (ICD-10-PCS; principal; 2020-06-25)
PROC: 0QBH0ZZ Excision of Left Tibia, Open Approach (ICD-10-PCS; 2020-06-25)
PROC: 02HV33Z Insertion of Infusion Device into Superior Vena Cava, Percutaneous Approach (ICD-10-PCS; 2020-06-30)
PROC: B518ZZA Fluoroscopy of Superior Vena Cava, Guidance (ICD-10-PCS; 2020-06-30)
DX: T85.79XA Infection and inflammatory reaction due to other internal prosthetic devices, implants and grafts, initial encounter (principal); S82.872K Displaced pilon fracture of left tibia, subsequent encounter for closed fracture with nonunion; Z20.828 Contact with and (suspected) exposure to other viral communicable diseases; Y83.8 Other surgical procedures as the cause of abnormal reaction of the patient, or of later complication, without mention of misadventure at the time of the procedure; M19.072 Primary osteoarthritis, left ankle and foot; B95.62 Methicillin resistant Staphylococcus aureus infection as the cause of diseases classified elsewhere; Z87.891 Personal history of nicotine dependence; Z79.899 Other long term (current) drug therapy
CPT/HCPCS: 36415; 36416; 36569; 76000; 80053; 80202; 82565; 85025; 87070; 87076; 87077; 87186; 87205; 87324; 87449; C1751; J0690; J1100; J1885; J2405; J2543; J2704; J3010; J3370; J3490; J7050; Q9967